=== PATIENT | female | born 1985 | race Two or more races ===

== ENCOUNTER → 2025-07-16 18:30 | Day surgery (SDC) | payer OTHER ==
[2025-07-10 11:25] VITALS: BMI 19.5
[2025-07-16] MEDS: LIDOCAINE HCL 1%, 10 MG/ML (20ML VIAL) NR ONE ×2 (15:24)
[2025-07-16] MEDS: BUPIVACAINE HCL/PF 0.5% (5MG/ML) 10 ML VIAL IJ ONE ×3 (15:24→16:03)
[2025-07-16] MEDS: ACETAMINOPHEN 1000 MG/100 ML BAG IVPB ONE (16:43)
[2025-07-16] MEDS: DESMOPRESSIN ACETATE IVPB ONE (16:45)
[2025-07-16] MEDS: SODIUM CHLORIDE IVPB ONE (16:45)
[2025-07-16 18:30] VITALS: BP 119/70; PULSE 60; RESP 15; TEMP 97.6
[~2025-07-16 18:30] MED LIST: ACETAMINOPHEN 1000 MG/100 ML BAG IVPB ONE; LACTATED RINGERS SOLUTION 1,000 ML IV SCH; ONDANSETRON 4 MG/2 ML VIAL IVPUSH PRN
== END | disposition home or self-care (01) ==
LOC: JASU-SURG 18:30
PROVIDERS: ATTEND Podiatrist Foot Surgery
PROC: 0QBP0ZZ Excision of Left Metatarsal, Open Approach (ICD-10-PCS; 2025-07-16)
PROC: 0QSP04Z Reposition Left Metatarsal with Internal Fixation Device, Open Approach (ICD-10-PCS; principal; 2025-07-16 14:30)
DX: M20.12 Hallux valgus (acquired), left foot (principal)
CPT/HCPCS: 28296; 28299; C1713; 73630-TC-LT; 88305-TC; 88311-TC; 94760